=== PATIENT | female | born 1965 | race Caucasian/White ===

== ENCOUNTER → 2023-09-08 | Outpatient (CLI) | payer OTHER ==
[~2023-09-08] MED LIST: FERR-43 PO; LEVO125T PO
== END | disposition home or self-care (01) ==
LOC: RAD 13:31
PROVIDERS: ATTEND Orthopaedic Surgery
DX: M17.0 Bilateral primary osteoarthritis of knee (principal); M77.51 Other enthesopathy of right foot and ankle; M19.072 Primary osteoarthritis, left ankle and foot; M79.671 Pain in right foot; M77.8 Other enthesopathies, not elsewhere classified
CPT/HCPCS: 73565; 73630